=== PATIENT | female | born 1955 | race Caucasian/White ===

== ENCOUNTER → 2023-09-29 | Outpatient (CLI) | payer MEDICARE ==
[2023-09-29 16:09] LABS: BASOPHILS ABSOLUTE AUTO 0.05 K/mm3 (0.00-0.23); BASOPHILS PERCENT AUTO 1 % (0-2); EOSINOPHILS ABSOLUTE AUTO 0.12 K/mm3 (0.00-0.68); EOSINOPHILS PERCENT AUTO 2 % (0-6); Hematocrit 39.8 % (33.0-51.0); Hemoglobin 13.9 g/dL (11.5-16.0); IMMATURE GRAN ABSOLUTE AUTO 0.02 K/mm3 (0.00-0.10); IMMATURE GRAN PERCENT AUTO 0 % (0-1); LYMPHOCYTES ABSOLUTE AUTO 2.07 K/mm3 (0.84-5.20); LYMPHOCYTES PERCENT AUTO 34 % (21-46); MONOCYTES ABSOLUTE AUTO 0.44 K/mm3 (0.16-1.47); MONOCYTES PERCENT AUTO 7 % (4-13); Mean Corpuscular HGB 31.2 pg (26.0-34.0); Mean Corpuscular HGB Conc 34.9 g/dL (31.5-36.5); Mean Corpuscular Volume 89 fL (80-100); NEUTROPHILS ABSOLUTE AUTO 3.33 K/mm3 (1.96-9.15); NEUTROPHILS PERCENT AUTO 55 % (41-73); Platelet Count 361 K/mm3 (150-400); RDW Coefficient Variation 11.8 % (11.7-14.2); RDW Standard Deviation 38.5 fL (35.1-46.3); Red Blood Cell Count 4.45 M/mm3 (3.80-5.20); White Blood Cell Count 6.03 K/mm3 (4.00-11.30)
[2023-09-30 12:12] LABS: A/G RATIO 2.6 (1.2-2.2); BILIRUBIN, TOTAL 0.6 mg/dL (0.0-1.2); CALCIUM, SERUM 9.6 mg/dL (8.7-10.3); CREATININE, SERUM 0.6 mg/dL (0.57-1.00); GLOBULIN, TOTAL 1.9 g/dL (1.5-4.5); POTASSIUM, SERUM 4.2 mmol/L (3.5-5.2); PROTEIN, TOTAL, SERUM 6.8 g/dL (6.0-8.5)
== END | disposition home or self-care (01) ==
LOC: LAB 14:51 → LAB SHORT 14:51
PROVIDERS: Family Medicine
DX: Z00.01 Encounter for general adult medical examination with abnormal findings (principal); Z13.1 Encounter for screening for diabetes mellitus
CPT/HCPCS: 80053; 83036; 85025

== ENCOUNTER 2023-12-22 07:21 | Day surgery (SDC) | payer MEDICARE ==
[~2023-12-22] VITALS: Ht 165.1 cm; Wt 65.4 kg
[~2023-12-22 07:21] MED LIST: 1/2 NS 250ml250 ML; AMLO10 PO; AMOCLA875 PO; LOSARTAN POTASS50 M1 PO; VISBIOME 112.51 EACH PO; propofoL 50 ML IV ONE
[2023-12-22] MEDS ORDERED: Lactated Ringer's 1,000 ML IV ONE ×2 (07:22→08:51)
[2023-12-22] MEDS ORDERED: Milk Thistle175 M1 (07:43)
[2023-12-22] MEDS ORDERED: LUTEIN20 MG (07:43)
[2023-12-22] MEDS ORDERED: TOCO1000 (07:44)
[2023-12-22] MEDS ORDERED: GLUCHON (07:44)
[2023-12-22] MEDS ORDERED: TUMS500 MG (07:44)
[2023-12-22] MEDS ORDERED: FISH OIL 1,2001 EAC7 (07:44)
[2023-12-22 10:13] VITALS: BP 118/58
== END 2023-12-22 10:04 | disposition home or self-care (01) ==
LOC: ORSCSDS 07:21
PROVIDERS: Internal Medicine Gastroenterology
PROC: 0DBN8ZX Excision of Sigmoid Colon, Via Natural or Artificial Opening Endoscopic, Diagnostic (ICD-10-PCS; principal; 2023-12-22 08:45)
DX: Z87.19 Personal history of other diseases of the digestive system (principal); Z86.010 Personal history of colon polyps; D12.5 Benign neoplasm of sigmoid colon; K56.699 Other intestinal obstruction unspecified as to partial versus complete obstruction; I10 Essential (primary) hypertension; Z79.899 Other long term (current) drug therapy
CPT/HCPCS: 88305; J2704; J7120